=== PATIENT | female | born 1980 | race Caucasian/White ===

== ENCOUNTER 2022-06-28 11:01 | Emergency (ER) | payer OTHER ==
[2022-06-28 13:41] LABS: ESTIMATED GFR 81 mL/min (>60)
[2022-06-28 14:00] LABS: CORONAVIRUS COVID-19 NAA NEGATIVE (NEGATIVE)
[2022-06-28 15:22] VITALS: BP 146/86; PULSE 76
== END 2022-06-28 15:20 | disposition home or self-care (01) ==
LOC: JD.ED 11:01
DX: R42 Dizziness and giddiness (principal); E78.00 Pure hypercholesterolemia, unspecified; I10 Essential (primary) hypertension; Z79.899 Other long term (current) drug therapy; Z20.822 Contact with and (suspected) exposure to COVID-19
CPT/HCPCS: 0241U; 36415; 71046; 80053; 83735; 84484; 85025; 85379; 86140; 93005; 99284; 93010

== ENCOUNTER 2022-07-28 11:17 | Emergency (ER) | payer OTHER ==
[2022-07-28] MEDS ORDERED: Sodium Chloride 0.9% 10 ML Syringe FLUSH PRN (11:33)
[2022-07-28] MEDS ORDERED: Aspirin 81 MG Tab.Chew PO ONE (11:33)
[2022-07-28] MEDS ORDERED: Nitroglycerin 0.4 MG Tab.SL SL PRN (11:52)
[2022-07-28 12:09] LABS: ESTIMATED GFR 64 mL/min (>60)
[2022-07-28] MEDS ORDERED: Heparin Sodium 5,000 Units/ML Vial IVPUSH ONE (12:10)
[2022-07-28] MEDS ORDERED: Heparin Sodium/D5W 25,000 UNITS/500 ML BAG IV SCH (12:15)
[2022-07-28] MEDS ORDERED: Morphine 2 MG/ML SYRINGE IVPUSH ONE (12:24)
[2022-07-28] MEDS ORDERED: Potassium Chloride 20 MEQ Tab.ER PO ONE (12:29)
[2022-07-28] MEDS ORDERED: Ondansetron 4 MG/2 ML SDV IVPUSH ONE (12:31)
[2022-07-28] MEDS ORDERED: Nitroglycerin/D5W 25 MG/250 ML BOTTLE IV SCH (12:45)
[2022-07-28 13:35] VITALS: BP 147/103; PULSE 106
== END 2022-07-28 12:45 ==
LOC: JD.ED 11:17
DX: I21.4 Non-ST elevation (NSTEMI) myocardial infarction (principal)
CPT/HCPCS: 36415; 71045; 80053; 83735; 84484; 84702; 85025; 85379; 85610; 93005; 96365; 96368; 96375; 99285; A9270; J1644; J2270; J2405; J3490; 93010